=== PATIENT | female | born 1960 | race Caucasian/White ===

== ENCOUNTER 2017-03-27 08:16 | Outpatient (RCR) | payer BC | END 2017-05-19 00:37 | disposition home or self-care (01) | LOC: DSME 08:16 | PROVIDERS: ATTEND Internal Medicine Endocrinology, Diabetes & Metabolism | DX: E11.65 Type 2 diabetes mellitus with hyperglycemia (principal) ==

== ENCOUNTER → 2017-03-27 | Outpatient (CLI) | payer BC ==
[~2017-03-27] MED LIST: ALPR0.5T72 PO; CETI10TA17 PO; CTLP20T PO; METFOR850T PO; OLME1TAB22 PO; OMEP20TA2 PO
== END ==
LOC: RAD 08:13
PROVIDERS: ATTEND Family Medicine
DX: Z12.31 Encounter for screening mammogram for malignant neoplasm of breast (principal)
CPT/HCPCS: 77067

== ENCOUNTER → 2018-05-21 | Outpatient (CLI) | payer BC ==
--- NOTE | 2018-05-21 12:49 | Diagnostic Imaging Report ---
The current study was also evaluated with a Computer Aided Detection (CAD) system. 3-D tomosynthesis was also performed and reviewed. INDICATION: Routine screening. Comparison is made with prior mammogram from 03/27/2017 and 03/03/2016. 2-D and 3-D bilateral screening mammography was performed with CAD. FINDINGS: Scattered fibroglandular densities are identified bilaterally. Circumscribed density in the upper-outer right breast appears stable and consistent with benign etiology. No spiculated mass or malignant-appearing microcalcifications are seen. The axillae are unremarkable. IMPRESSION: No mammographic features suspicious for malignancy are identified. ACR BI-RADS Category 2: Benign findings. Result letter will be mailed to the patient. Note: At least 10% of breast cancer is not imaged by mammography. Dictated by: Dictated on workstation # [id number]
== END ==
LOC: RAD 07:40
PROVIDERS: ATTEND Family Medicine
DX: Z12.31 Encounter for screening mammogram for malignant neoplasm of breast (principal)
CPT/HCPCS: 77067

== ENCOUNTER 2018-12-16 08:18 | Emergency (ER) | payer OTHER, BC ==
[~2018-12-16] VITALS: Ht 162.6 cm; Wt 81.6 kg
[2018-12-16] MEDS ORDERED: ESOM20CA PO (08:50)
[2018-12-16] MEDS ORDERED: TELM40TA3 PO (08:50)
[2018-12-16] MEDS ORDERED: LIRA0.6P SQ (08:50)
[2018-12-16 09:03] LABS: HEMOGLOBIN 13.1 G/DL (11.5-16.0); MEAN PLATELET VOLUME 10.2 FL (7.4-10.4); RED CELL DISTRIBUTION WIDTH 13.5 % (10.0-14.5); WHITE BLOOD COUNT 6.9 10^3/uL (4.3-11.0)
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
[2018-12-16 09:32] LABS: ALANINE AMINOTRANSFERASE 18 U/L (0-55); ALBUMIN 4.4 GM/DL (3.2-4.5); ALKALINE PHOSPHATASE 139 U/L (40-136); BILIRUBIN,DIRECT 0.2 MG/DL (0.0-0.3); BILIRUBIN,INDIRECT 0.4 MG/DL; BILIRUBIN,TOTAL 0.6 MG/DL (0.1-1.0); BUN/CREATININE RATIO 17; CALCIUM 9.5 MG/DL (8.5-10.1); CARBON DIOXIDE 22 MMOL/L (21-32); CHLORIDE 105 MMOL/L (98-107); CREATININE SERUM 1.09 MG/DL (0.60-1.30); GFR ESTIMATED 51; GLUCOSE 134 MG/DL (70-105); POTASSIUM 3.4 MMOL/L (3.6-5.0); SODIUM 141 MMOL/L (135-145); TOTAL PROTEIN 7.6 GM/DL (6.4-8.2)
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
[2018-12-16 10:44] LABS: BILIRUBIN,URINE NEGATIVE (NEGATIVE); GLUCOSE, URINE (UA) NEGATIVE (NEGATIVE); KETONES,URINE NEGATIVE (NEGATIVE); LEUKOCYTE ESTERASE ,URINE 3+ (NEGATIVE); NITRITE,URINE NEGATIVE (NEGATIVE); PH,URINE 7 (5-9); PROTEIN,URINE 1+ (NEGATIVE); UROBILINOGEN,URINE NORMAL (NORMAL)
[2018-12-16 11:01] LABS: CLARITY,URINE CLEAR; COLOR,URINE YELLOW
[2018-12-16 11:02] LABS: BACTERIA,URINE FEW /HPF; WBC,URINE 25-50 /HPF
[2018-12-16] MEDS ORDERED: TETANUS,DIPTH,PERTUSS P/F (BOOSTRIX) 0.5 ML VIAL IM ONE (11:30)
[2018-12-16 11:37] VITALS: BP 150/90
== END 2018-12-16 11:37 | disposition home or self-care (01) ==
LOC: EDUNIT# 08:18 → ER 08:21
DX: S06.0X0A Concussion without loss of consciousness, initial encounter (principal); S31.119A Laceration without foreign body of abdominal wall, unspecified quadrant without penetration into peritoneal cavity, initial encounter; T23.101A Burn of first degree of right hand, unspecified site, initial encounter; T23.102A Burn of first degree of left hand, unspecified site, initial encounter; T31.0 Burns involving less than 10% of body surface; E78.00 Pure hypercholesterolemia, unspecified; I10 Essential (primary) hypertension; K21.9 Gastro-esophageal reflux disease without esophagitis; E03.9 Hypothyroidism, unspecified; E11.9 Type 2 diabetes mellitus without complications; R40.2142 Coma scale, eyes open, spontaneous, at arrival to emergency department; R40.2252 Coma scale, best verbal response, oriented, at arrival to emergency department; R40.2362 Coma scale, best motor response, obeys commands, at arrival to emergency department; Z88.2 Allergy status to sulfonamides; Z79.84 Long term (current) use of oral hypoglycemic drugs; Z87.891 Personal history of nicotine dependence; Z90.49 Acquired absence of other specified parts of digestive tract; Z90.710 Acquired absence of both cervix and uterus; Z77.098 Contact with and (suspected) exposure to other hazardous, chiefly nonmedicinal, chemicals; Z23 Encounter for immunization; V48.5XXA Car driver injured in noncollision transport accident in traffic accident, initial encounter
CPT/HCPCS: 36415; 70450; 71045; 72125; 80048; 80076; 80320; 81000; 84703; 85027; 87088; 90471; 90715; 93041

== ENCOUNTER → 2019-05-22 | Outpatient (CLI) | payer BC, OTHER ==
[~2019-05-22] MED LIST changes: +ESOM20CA PO; +LIRA0.6P SQ; +TELM40TA3 PO
--- NOTE | 2019-05-22 17:53 | Diagnostic Imaging Report ---
EXAMINATION: Digital mammogram bilateral screening. INDICATION: Screening. COMPARISON: This study was compared to the prior exam of 05/21/2018, 03/27/2017, and 03/03/2016. At this time, there are no current complaints. The current study was also evaluated with a Computer Aided Detection (CAD) system. 3-D tomosynthesis was also performed and reviewed. FINDINGS: The fibroglandular tissue in both breasts is heterogeneously dense. This does limit the sensitivity of this exam. Overall, there does not appear to have been any significant change when compared to the prior study. No primary or secondary sign of malignancy is noted. 3D tomographic images fail to show any sign of malignancy. IMPRESSION: There is no radiographic evidence for malignancy. ACR BI-RADS Category 1: Negative. Result letter will be mailed to the patient. Note: At least 10% of breast cancer is not imaged by mammography. Dictated by: Dictated on workstation # [id number]
== END ==
LOC: RAD 09:58
PROVIDERS: ATTEND Family Medicine
DX: Z12.31 Encounter for screening mammogram for malignant neoplasm of breast (principal)
CPT/HCPCS: 77067

== ENCOUNTER → 2020-05-24 | Outpatient (CLI) | payer BC ==
[~2020-05-24] MED LIST changes: -TELM40TA3 PO; +TELM40TA6 PO
--- NOTE | 2020-05-24 11:08 | Diagnostic Imaging Report ---
INDICATION: Routine screening. COMPARISON: 05/22/2019 and 05/21/2018. TECHNIQUE: 2D and 3D bilateral screening mammography was performed with CAD. FINDINGS: Scattered fibroglandular densities are identified bilaterally. The intraparenchymal lymph node in the upper outer right breast is stable. No spiculated mass or malignant appearing microcalcifications are seen. The axillae are unremarkable. IMPRESSION: No mammographic features suspicious for malignancy are identified. ACR BI-RADS Category 2: Benign findings. Result letter will be mailed to the patient. Note: At least 10% of breast cancer is not imaged by mammography. Dictated by: Dictated on workstation # [id number]
== END ==
LOC: RAD 08:11
PROVIDERS: ATTEND Family Medicine
DX: Z12.31 Encounter for screening mammogram for malignant neoplasm of breast (principal)
CPT/HCPCS: 77063; 77067

== ENCOUNTER → 2021-05-25 | Outpatient (CLI) | payer BC ==
--- NOTE | 2021-05-25 11:55 | Diagnostic Imaging Report ---
Indication: Routine screening. Comparison is made with prior mammogram 05/24/2020 and 05/22/2019. 2-D and 3-D bilateral screening mammography was performed with CAD. Scattered fibroglandular densities are identified bilaterally. Intraparenchymal lymph nodes in the outer right breast is stable. No new mass or malignant-appearing microcalcifications are seen. Axillae are unremarkable. IMPRESSION: BI-RADS Category 2 No mammographic features suspicious for malignancy are identified. ACR BI-RADS Category 2: Benign findings. Result letter will be mailed to the patient. Note: At least 10% of breast cancer is not imaged by mammography. Dictated by: Dictated on workstation # [id number]
== END ==
LOC: RAD 10:15
PROVIDERS: ATTEND Family Medicine
DX: Z12.31 Encounter for screening mammogram for malignant neoplasm of breast (principal)
CPT/HCPCS: 77063; 77067

== ENCOUNTER 2021-06-28 05:33 | Outpatient (CLI) | payer BC ==
[~2021-06-28] VITALS: Ht 162.6 cm; Wt 80.2 kg
[2021-06-29] MEDS ORDERED: ATOR20TA66 PO (09:05)
[2021-06-29] MEDS ORDERED: LEVO75CA5 PO (09:05)
[2021-06-29] MEDS ORDERED: METF-399 PO (09:05)
== END 2021-06-29 13:25 | disposition home or self-care (01) ==
LOC: PREOP 05:33
PROVIDERS: ATTEND Surgery
DX: Z01.818 Encounter for other preprocedural examination (principal)

== ENCOUNTER 2021-07-05 10:16 | Day surgery (SDC) | payer BC ==
[~2021-07-05] VITALS: Ht 162.6 cm; Wt 80.2 kg
[2021-07-05] VITALS (7 sets, daily range): BP systolic 85–132; BP diastolic 55–66
[~2021-07-05 10:16] MED LIST changes: +ATOR20TA66 PO; +LEVO75CA5 PO; +METF-399 PO
[2021-07-05] MEDS ORDERED: LACTATED RINGERS 1,000 ML IV ONE (10:21)
[2021-07-05] MEDS ORDERED: LACTATED RINGERS 1,000 ML IV STA (10:35)
[2021-07-05] MEDS ORDERED: HYDR25TA4 PO (10:53)
[2021-07-05] MEDS ORDERED: MIDAZOLAM 2 MG/2 ML (VERSED) VIAL ONE (10:53)
[2021-07-05] MEDS ORDERED: PROPOFOL INJECTION 50 ML IV ONE (10:53)
--- NOTE | 2021-07-05 11:02 | Progress Note-Pre Operative ---
Pre-Operative Progress Note H&P Reviewed The H&P was reviewed, patient examined and no changes noted. Date Seen by Provider: Jul 05, 2021 Time Seen by Provider: 11:01 Date H&P Reviewed: Jul 05, 2021 Time H&P Reviewed: 11:01 Pre-Operative Diagnosis: screening colonoscopy MARICEL RANDALL DO Jul 05, 2021 11:02
--- NOTE | 2021-07-05 11:26 | Progress Note-Post Operative ---
Post-Operative Progess Note Surgeon (s)/Cosmetic Dentist (s) Surgeon MARICEL RANDALL DO Cosmetic Dentist: NA Pre-Operative Diagnosis screening colonoscopy Post-Operative Diagnosis Colon polyp, hemmorrhoids Procedure & Operative Findings Date of Procedure 07/05/21 Procedure Performed/Findings Colonoscopy with hot biopsy polypectomy in sigmoid colon Anesthesia Type Per FRONT OFFICE MANAGER Estimated Blood Loss Estimated blood loss (mL): none Specimens/Packing Specimens Removed Sigmoid polyp x1 MARICEL RANDALL DO Jul 05, 2021 11:26
--- NOTE | 2021-07-05 11:31 | Discharge Inst-Simple/Standard ---
Discharge Inst-Standard Patient Instructions/Follow Up Plan of Care/Instructions/FU: 2 weeks yosi Activity as Tolerated: Yes Discharge Diet: Regular Diet MARICEL RANDALL DO Jul 05, 2021 11:31
--- NOTE | 2021-07-05 15:06 | Anesthesia-General Post-Op ---
MAC Patient Condition Mental Status/LOC: Same as Preop Cardiovascular: Satisfactory Nausea/Vomiting: Absent Respiratory: Satisfactory Pain: Controlled Complications: Absent Post Op Complications Complications None Follow Up Care/Instructions Patient Instructions None needed. Anesthesiology Discharge Order Discharge Order Patient is doing well, no complaints, stable vital signs, no apparent adverse anesthesia problems. No complications reported per nursing. TERE BARRIOS CRNA Jul 05, 2021 15:06
--- NOTE | 2021-07-05 16:14 | OPERATIVE REPORT ---
DATE OF SERVICE: 07/05/2021 PREOPERATIVE DIAGNOSIS: Screening colonoscopy. POSTOPERATIVE DIAGNOSIS: Colon polyp, internal hemorrhoids. PROCEDURE: Colonoscopy with hot biopsy polypectomy, sigmoid colon polyp. SURGEON: Maricel Parker DO ANESTHESIA: Per HEALTH ANALYST. ESTIMATED BLOOD LOSS: None. COMPLICATIONS: None. INDICATIONS: The patient is a 61-year-old female needing screening colonoscopy. She understands risks and benefits of procedure and wished to proceed with procedure. Consent was signed in the chart. DESCRIPTION OF PROCEDURE: The patient was taken to the endoscopy suite, placed in left lateral recumbent position. Timeout was performed. Digital rectal exam was performed noting hemorrhoids. No palpable polyps, masses or ulcerations. Scope was inserted in the rectum and advanced all the way to cecum with minimal difficulty. Prep was adequate. Scope was slowly retracted back. No polyps, masses or ulcerations within the cecum, ascending, transverse, descending colon. In sigmoid colon, a small polyp was present, which hot biopsy polypectomy was performed. Scope was continuously retracted back until the rectum where it was also retroflexed noting some internal hemorrhoids. Scope was returned to its normal position, slowly withdrawn until completely removed. The patient tolerated the procedure well without any complications, taken to recovery room in stable condition. RECOMMENDATIONS: The patient will need repeat colonoscopy in 5 years due to polyp. The patient will follow up on the hot biopsy polypectomy pathology in 2 weeks. Any issues before that will be seen at that time. Otherwise, further recommendations pending pathology results. Job ID: [id number] DocumentID: [id number] Dictated Date: 07/05/2021 11:33:46 Assistant Professor Of English Date: 07/05/2021 16:14:08 Dictated By: MARICEL PARKER DO
== END 2021-07-05 11:20 | disposition home or self-care (01) ==
LOC: ENDO 10:16
PROVIDERS: ATTEND Surgery
DX: Z12.11 Encounter for screening for malignant neoplasm of colon (principal); K63.5 Polyp of colon; K64.8 Other hemorrhoids; I10 Essential (primary) hypertension; E11.9 Type 2 diabetes mellitus without complications; M06.9 Rheumatoid arthritis, unspecified; E06.3 Autoimmune thyroiditis; K21.9 Gastro-esophageal reflux disease without esophagitis; Z85.828 Personal history of other malignant neoplasm of skin; Z87.891 Personal history of nicotine dependence; Z79.890 Hormone replacement therapy; Z79.84 Long term (current) use of oral hypoglycemic drugs; Z79.899 Other long term (current) drug therapy; Z88.2 Allergy status to sulfonamides
CPT/HCPCS: 82947; 88305

== ENCOUNTER → 2022-06-06 | Outpatient (CLI) | payer BC ==
[~2022-06-06] MED LIST changes: +HYDR25TA4 PO
--- NOTE | 2022-06-06 13:40 | Diagnostic Imaging Report ---
Indication: Routine screening. Comparison is made with prior mammogram from 05/25/2021 and 05/24/2020. 2-D and 3-D bilateral screening mammography was performed with CAD. Scattered fibroglandular densities are identified bilaterally. A benign-appearing intraparenchymal lymph node upper outer right breast is stable. No new mass or malignant-appearing microcalcifications are identified. The axillae are unremarkable. IMPRESSION: BI-RADS Category 2 No mammographic features suspicious for malignancy are identified. ACR BI-RADS Category 2: Benign findings. Result letter will be mailed to the patient. Note: At least 10% of breast cancer is not imaged by mammography. Dictated by: Dictated on workstation # [id number]
== END ==
LOC: RAD 07:18
PROVIDERS: ATTEND Family Medicine
DX: Z12.31 Encounter for screening mammogram for malignant neoplasm of breast (principal)
CPT/HCPCS: 77063; 77067